=== PATIENT | male | born 1975 | race Caucasian/White ===

== ENCOUNTER 2016-10-05 04:00 | Inpatient (IN) | payer MEDICAID ==
[~2016-10-05] VITALS: Ht 177.8 cm; Wt 78.9 kg
[~2016-10-05 04:00] MED LIST: PRILOSEC20 M1 PO
--- NOTE | 2016-10-05 04:12 | NUR ---
PT TAKEN TO BED 5
[2016-10-05 04:18] VITALS: BP 125/85
--- NOTE | 2016-10-05 04:18 | NUR ---
40 Y/O M W/C/O R UPPER ABD PAIN X TODAY. DENIES ANY VOMITITNG BUT STATES TO FEEL NAUSEATED. MED ACID REFLEX FOR WHICH TAKES OMEPRAZOLE 20MG.
--- NOTE | 2016-10-05 04:24 | NUR ---
Dr. Bal evaluating patient at bedside.
[2016-10-05 04:35] VITALS: BP 125/76
[2016-10-05] MEDS ORDERED: KETOROLAC 60 MG/2 ML VIAL IM ONE ×2 (04:36→05:05)
--- NOTE | 2016-10-05 04:36 | NUR ---
PER DR WRITTEN ORDERS TO GIVE KETOROLAC 60MG/2LM IM FOR PAIN.MEDICATION GIVEN, PT TOLERATED WELL.
--- NOTE | 2016-10-05 05:06 | NUR ---
Ultrasound at bedside.
[2016-10-05] MEDS ORDERED: ONDANSETRON 4 MG/2 ML VIAL IVP PRN (06:05)
[2016-10-05] MEDS ORDERED: LORazepam 2 MG/ML VIAL IVP PRN (06:05)
[2016-10-05] MEDS ORDERED: MORPHINE SULFATE 4 MG/ML SYR IVP PRN (06:05)
--- NOTE | 2016-10-05 06:11 | NUR ---
Patient will be admitted to care of DR HADLEY. Admited to MED SURG. Will go to room 122B. Belongings list completed. Report to KULDEEP COTTER.
--- NOTE | 2016-10-05 06:20 | NUR ---
PT TRASFERED TO MED SURG, ROOM 122 B VIA WHEEL CHAIR. ACCOMPANIED BY EMT AND FAMILY. NO S/S OF DISTRESS NOTED ON TRASFER.
--- NOTE | 2016-10-05 06:30 | NUR ---
PATIENT ADMITTED TO UNIT FROM ED, ARRIVED VIA WHEELCHAIR, PATIENT ABLE TO AMBULATE TO BED, STEADY GAIT. PATIENT IS AAOX4, ON ROOM AIR, NO SOB OR SIGN OF DISTRESS AT THIS TIME, VITAL SIGNS STABLE, TEMP 97.4 BP 115/72 HR 56 O2 100%. ORIENTED PATIENT TO ROOM AND CALL LIGHT, SAFETY MEASURES CHECKED WILL ENDORSE TO MORNING NURSE FOR CONTINUITY OF CARE.
--- NOTE | 2016-10-05 07:35 | NUR ---
ENDORSED PATIENT TO DAY RN AT BEDSIDE, PATIENT IN STABLE CONDITION
--- NOTE | 2016-10-05 07:36 | NUR ---
PT AWAKE AND ALERT, NO SIGNS OF ACUTE DISTRESS, BREATHING EVEN AND UNLABORED BILATERALLY ON ROOM AIR, BOWEL SOUNDS ACTIVE IN ALL 4 QUADRANTS, AMBULATORY WITH BRP, SKIN INTACT, IV PATENT WITHOUT REDNESS, NO COMPLAINT OF PAIN, CALL LIGHT WITHIN REACH, BED IN LOW POSITION WITH BILATERAL HALF SIDE RAILS UP, ORIENTED TO ROOM AND UNIT, PATIENT VERBALIZED UNDERSTANDING.
[2016-10-05 08:00] VITALS: BP 102/60
[2016-10-05] MEDS ORDERED: OMEPRAZOLE 20 MG PO SCH (09:00)
[2016-10-05] MEDS: PANTOPRAZOLE 40 MG TABEC PO SCH (09:00)
[2016-10-05] MEDS: DEXT 5% /NACL 0.9% 1,000 ML IV SCH ×2 (09:52→16:05)
[2016-10-05] MEDS ORDERED: KCL 20 MEQ/WATER INJ PREMIX 100 ML IV SCH (10:00)
[2016-10-05 16:00] VITALS: BP 108/63
--- NOTE | 2016-10-05 19:24 | NUR ---
PT AWAKE AND ALERT, NO SIGNS OF ACUTE DISTRESS. BED IN LOW POSITION WITH BILATERAL HALF SIDE RAILS UP, CALL LIGHT WITHIN REACH. GAVE REPORT TO SENIOR ENGINEERING TECHNICIAN RN FOR CONTINUITY OF CARE.
--- NOTE | 2016-10-05 19:25 | NUR ---
RECEIVED REPORT, ASSUMED CARE. PT AAOX4. RESPIRATION EVEN AND UNLABORED. DENIES PAIN OR DISCOMFORT AT THIS TIME. IV ACCESS TO LT AC #22, NO S/S OF INFILTRATION. INFUSING D5 NS AT 100ML/HR. CALL LIGHT WITHIN EASY REACH. WILL CONTINUE TO MONITOR. PT ON NPO POST MN ORDERED. DISCUSSED PLAN OF CARE TO THE PT, HE VERBALIZED UNDERSTANDING.
--- NOTE | 2016-10-05 22:30 | NUR ---
ROUNDS MADE, PT STILL AWAKE AT THIS TIME. REGULAR BREATHING PATTERN,NO S/S OF RESP DISTRESS. PT DENIES ANY PAIN OR DISCOMFORY AT THIS TIME. ALL NEEDS ANTICIPATED.ALL NEEDS ANTICIPATED. CALL LIGHT KEPT WITHIN EASY REACH. WILL CONTINUE TO MONITOR.
[2016-10-06] VITALS (9 sets, daily range): BP systolic 95–116; BP diastolic 56–65
[2016-10-06] MEDS: DEXT 5% /NACL 0.9% 1,000 ML IV SCH ×3 (01:02→22:05)
--- NOTE | 2016-10-06 07:30 | NUR ---
PT AWAKE, VERBALLY RESPONSIVE. NO C/O PAIN AT THIS TIME. ENDORSED TO NEXT SHIFT FOR CONTINUITY OF CARE. PT IN STABLE CONDITION.
--- NOTE | 2016-10-06 07:31 | NUR ---
RECEIVED REPORT FROM THE LASER TECHNICIAN NURSE AT BEDSIDE FOR CONTINUITY OF CARE. PT IS AWAKE AND ORIENTED. INTRODUCED MYSELF AND UPDATED THE BOARD. PER LASER TECHNICIAN NURSE, PT IS TO HAVE CHOLECYSTECTOMY TODAY. ALL READY TO GO. TICKET TO RIDE AND CONSENT IN CHART. PT'S BEEN NPO SINCE MIDNIGHT. NOTED IV ON L AC 22G D5NS RUNNING AT 100ML. PT DENIES ANY PAIN AT THIS TIME. V/S WITHIN NORMAL RANGE. SKIN INTACT. WILL CONTINUE TO MONITOR PT.
[2016-10-06] MEDS: PANTOPRAZOLE 40 MG TABEC PO SCH (09:00)
--- NOTE | 2016-10-06 09:15 | NUR ---
2 OR TOOK PT FOR PROCEDURE.
[2016-10-06] MEDS ORDERED: ONDANSETRON 4 MG/2 ML VIAL ONE (09:20)
[2016-10-06] MEDS ORDERED: PROPOFOL 200 MG/20 ML VIAL IV ONE (09:20)
[2016-10-06] MEDS ORDERED: DEXAMETHASONE 4 MG/ML VIAL ONE (09:20)
[2016-10-06] MEDS ORDERED: ROCURONIUM 50 MG/5 ML VIAL IV ONE (09:20)
[2016-10-06] MEDS ORDERED: SUCCINYLCHOLINE CHLORIDE 200 MG/10 ML VIAL IVP ONE (09:20)
[2016-10-06] MEDS ORDERED: KETOROLAC 30 MG/ML VIAL ONE (09:20)
[2016-10-06] MEDS ORDERED: SEVOFLURANE 250 ML BTL INH ONE (09:20)
--- NOTE | 2016-10-06 09:20 | NUR ---
PATIENT HAS BEEN SCREENED AND CATEGORIZED MODERATE NUTRITION RISK. PATIENT WILL BE SEEN WITHIN 3-5 DAYS OF ADMISSION. 10/07/16-10/09/[address]
[2016-10-06] MEDS ORDERED: BUPIVACAINE-MPF/EPI 0.25% 30 ML VIAL INJ ONE (09:26)
[2016-10-06] MEDS ORDERED: ceFAZolin 1,000 MG VIAL ONE (09:27)
[2016-10-06] MEDS ORDERED: MIDAZOLAM 2 MG/2 ML VIAL ONE (09:35)
[2016-10-06] MEDS ORDERED: fentaNYL 0.05 MG/ML VIAL ONE (09:36)
[2016-10-06] MEDS ORDERED: MEPERIDINE 50 MG/ML SYR ONE (09:36)
[2016-10-06] MEDS ORDERED: diphenhydrAMINE 50 MG/ML VIAL IVP PRN (09:55)
[2016-10-06] MEDS ORDERED: ONDANSETRON 4 MG/2 ML VIAL IVP PRN (09:55)
[2016-10-06] MEDS ORDERED: LACTATED RINGERS 1,000 ML IV SCH (09:55)
[2016-10-06] MEDS ORDERED: MEPERIDINE 25 MG/ML SYR IVP PRN (09:55)
[2016-10-06] MEDS: HYDROmorphone 1 MG/ML AMP IVP PRN ×2 (10:52→11:08)
[2016-10-06] MEDS: HYDROmorphone PFS 2 MG/ML SYR ONE ×3 (10:53→11:32)
--- NOTE | 2016-10-06 12:00 | NUR ---
PT RETURNED BACK ONTO THE FLOOR W/ OR NURSE. PT IS AWAKE BUT DROWSY. PT V/S WITHIN NORMAL RANGE. PT HAS 4 BAND-AIDS COVERING SURGICAL SITE. WILL RESUME POST OP PROTOCOL W/ VS.
--- NOTE | 2016-10-06 13:41 | NUR ---
PT IS RESTING COMFORTABLY. SIPPING ON HIS CLEAR LIQ DIET LUNCH TRAY. AT BEDSIDE. NO COMPLAINTS OF PAIN. WILL CONTINUE TO MONITOR PT.
--- NOTE | 2016-10-06 16:30 | NUR ---
SPOKE TO DR. HADLEY REGARDING DR TINEO'S DC ORDER. DR. HADLEY ORDERED REGULAR DIET FOR TONIGHT AND DISCHARGE TOMORROW IF PT TOLERATES REGULAR DIET AND AMBULATES WELL. WILL CARRY OUT ORDER AND INFORM PT.
[2016-10-06] MEDS: MORPHINE SULFATE 2 MG/ML SYR IVP PRN ×2 (17:24→21:14)
--- NOTE | 2016-10-06 18:39 | NUR ---
PT ATE HIS REG DIET DINNER. PT TOLERATED WELL. PT HAS NOT YET AMBULATED TO THE BATHROOM. NO SIGNS OF DISTRESS. NO COMPLAINTS OF PAIN.
--- NOTE | 2016-10-06 19:18 | NUR ---
ENDORSED PT TO HYDROPULPER NURSE. PT IN STABLE CONDITION.
--- NOTE | 2016-10-06 19:24 | NUR ---
RECEIVED REPORT, ASSUMED CARE. PT AAOX4. RESPIRATION EVEN AND UNLABORED. PT SEEN AMBULATING IN THE HALLWAY WITH NO C/O PAIN AT THIS TIME. IV ACCESS TO LT AC #22, NO S/S OF INFILTRATION. INFUSING D5 1/2 NS AT 100ML/HR. CALL LIGHT WITHIN EASY REACH. WILL CONTINUE TO MONITOR.
--- NOTE | 2016-10-06 22:40 | NUR ---
PT SLEEPING COMFORTABLY IN BED. NO ACUTE S/S OF RESPIRATORY DISTRESS. NO FACIAL GRIMACING OR MOANING INDICATING PAIN. WILL CONTINUE TO MONITOR.
[2016-10-07] VITALS: BP 90/53
--- NOTE | 2016-10-07 00:29 | NUR ---
ROUNDS MADE, PT SLEEPING, EASILY AROUSABLE. NO FACIAL GRIMACING OR MOANING INDICATING PAIN. RESP REGULAR AND UNLABORED. WILL CONTINUE TO MONITOR.
[2016-10-07] MEDS: DEXT 5% /NACL 0.9% 1,000 ML IV SCH (03:06)
--- NOTE | 2016-10-07 07:26 | NUR ---
PT AWAKE AND VERBALLY RESPONSIVE. NO C/O PAIN, NO S/S OF RESPIRATORY DISTRESS AT THIS TIME. ENDORSED TO NEXT SHIFT FOR CONTINUITY OF CARE.
--- NOTE | 2016-10-07 07:26 | NUR ---
RECEIVED REPORT FROM NIGHT NURSE. PT IS AAOX4 SWEDISH SPEAKING, ON ROOM AIR, IV TO LEFT AC 22G INFUSING WELL, S/P LAP LELIA WITH 4 ABD BAND AIDS DRY AND INTACT. INITIAL ASSESSMENT COMPLETED, REVIEWED PLAN OF CARE WITH PT, PT VERBALIZED UNDERSTANDING. ALL SAFETY PRECAUTIONS MET, ALL NEEDS MET. CALL LIGHT WITHIN REACH. WILL CONTINUE TO MONITOR.
[2016-10-07 08:00] VITALS: BP 94/57
[2016-10-07] MEDS: MORPHINE SULFATE 2 MG/ML SYR IVP PRN (09:01)
[2016-10-07] MEDS: PANTOPRAZOLE 40 MG TABEC PO SCH (09:01)
--- NOTE | 2016-10-07 09:05 | NUR ---
DUE MEDICATIONS GIVEN. PT TOLERATED WELL. PT CURRENTLY EATING BREAKFAST, TOLERATING FOOD WELL. ALL NEEDS MET. CALL LIGHT WITHIN REACH. WILL CONTINUE TO MONITOR.
--- NOTE | 2016-10-07 09:56 | NUR ---
PT CURRENTLY WALKING AROUND UNIT, NO S/S OF DISTRESS NOTED . WILL CONTINUE TO MONITOR.
--- NOTE | 2016-10-07 10:38 | NUR ---
10/07/16 RD INITIAL ASSESSMENT COMPLETED PLEASE REFER TO NUTRITION ASSESSMENT UNDER CARE ACTIVITY FOR ESTIMATED NUTRITIONAL NEEDS. 1. RECOMMEND LOW FAT/LOW CHOLESTEROL DIET 2. RD TO FOLLOW-UP 3-5 DAYS; MODERATE RISK [facility] [address]
[2016-10-07] MEDS ORDERED: NORCO 325 MG-51 TAB PO (11:02)
--- NOTE | 2016-10-07 13:20 | NUR ---
PT SIGNED ALL DISCHARGE PAPER WORK, DISCHARGE EDUCATION GIVEN PT VERBALIZED UNDERSTANDING, PRESCRIPTION GIVEN, DISCHARGE PACKET GIVEN, IV REMOVED TIP INTACT, ABD PICTURE TAKEN. ARM BRM BANDS REMOVE, AWAITING FOR TO PICK PT UP.
--- NOTE | 2016-10-07 14:04 | NUR ---
PT WAS WALKED TO FRONT LOBBY IN STABLE CONDITION.
== END 2016-10-07 14:04 | disposition home or self-care (01) | DRG 263 ==
LOC: MED 04:00 → MTU 06:14
PROVIDERS: ADMIT Preventive Medicine Preventive Medicine/Occupational Environmental Medicine; ATTEND Preventive Medicine Preventive Medicine/Occupational Environmental Medicine
PROC: 0FT44ZZ Resection of Gallbladder, Percutaneous Endoscopic Approach (ICD-10-PCS; principal; 2016-10-06 10:25)
DX: K80.00 Calculus of gallbladder with acute cholecystitis without obstruction (principal); E43 Unspecified severe protein-calorie malnutrition; E83.52 Hypercalcemia; E87.5 Hyperkalemia; K21.9 Gastro-esophageal reflux disease without esophagitis; R73.9 Hyperglycemia, unspecified; D72.819 Decreased white blood cell count, unspecified; E78.5 Hyperlipidemia, unspecified; Z79.899 Other long term (current) drug therapy; Z68.25 Body mass index [BMI] 25.0-25.9, adult; Z82.49 Family history of ischemic heart disease and other diseases of the circulatory system

== ENCOUNTER 2019-02-01 13:29 | Emergency (ER) | payer MEDICAID ==
[~2019-02-01] VITALS: Ht 182.9 cm; Wt 87.1 kg
[~2019-02-01 13:29] MED LIST changes: +HYDR-5122 PO; +OMEP20EC4 PO; -PRILOSEC20 M1 PO
[2019-02-01 13:38] VITALS: BP 113/65
--- NOTE | 2019-02-01 13:39 | NUR ---
TRIAGE COMPLETE. DR MARIE GIVEN EKG, OKAY TO WAIT IN LOBBY FOR BED.
--- NOTE | 2019-02-01 14:01 | NUR ---
PT TAKEN TO BED 11.
[2019-02-01] MEDS ORDERED: ASPIRIN 81 MG TAB.CHEW PO ONE (14:15)
--- NOTE | 2019-02-01 14:21 | NUR ---
COVERING PRIMARY RN FOR LUNCH RELIEF. PT TO ED WITH C/O CP X 2 DAYS. DENIES SOB. DENIES RECENT INJURY/TRAUMA. NO OBVIOUS DISTRESS NOTED. EKG PERFORMED IN [facility]. REGULAR RATE AND RHYTHM ON CARDAIC MONITOR. PT PLACED INTO BED FOR MD RAMIREZ. VSS.
--- NOTE | 2019-02-01 15:09 | NUR ---
PT RESTING IN BED, DENIES CP AT THIS TIME
[2019-02-01 16:24] LABS: BASOPHILS % (AUTO) 0.3 % (0.0-2.0); EOSINOPHILS # (AUTO) 0.1 K/uL (0-0.4); HEMATOCRIT 42.5 % (36-52); LYMPHOCYTES # (AUTO) 1.4 K/uL (2.0-11.5); LYMPHOCYTES % (AUTO) 26.8 % (20.5-51.1); MEAN CORPUSCULAR HEMOGLOBIN 29 pg (27-31); MEAN CORPUSCULAR HGB CONC 33 g/dL (33-37); MEAN CORPUSCULAR VOLUME 88.6 fL (80-94); MONOCYTES # (AUTO) 0.4 K/uL (0.8-1.0); MONOCYTES % (AUTO) 8.3 % (1.7-9.3); NEUTROPHILS # (AUTO) 3.3 K/uL (1.8-7.7); NEUTROPHILS % (AUTO) 62.6 % (42.2-75.2); PLATELET COUNT (AUTO) 207 K/uL (140-450); RED BLOOD CELL COUNT(AUTO) 4.79 MIL/uL (4.20-6.10); RED CELL DISTRIBUTION WIDTH 14.4 % (11.6-13.7); WHITE BLOOD COUNT (AUTO) 5.3 K/uL (4.8-10.8)
[2019-02-01] MEDS ORDERED: ALBUTEROL 0.083% 2.5 MG/3 ML NEBU INH ONE (16:35)
[2019-02-01 16:43] LABS: ANION GAP 10.4 (8-16); CARBON DIOXIDE 29.6 mmol/L (21-32); CREATININE 0.9 mg/dL (0.7-1.3)
--- NOTE | 2019-02-01 16:58 | NUR ---
[facility] THERAPY AND RESPIRATORY GIVEN ORDERED ENCOURAGED FOR INTERMITTENT DEEP BREATH AND COUGH DURING THERAPY
--- NOTE | 2019-02-01 17:15 | NUR ---
PT WATCHING PHONE IN BED. DENIES PAIN
--- NOTE | 2019-02-01 18:13 | NUR ---
PT RESTING IN BED, DENIES PAIN AT THIS TIME, NO NEW NEEDS.
--- NOTE | 2019-02-01 19:15 | NUR ---
RECEIVED REPORT FROM RACHID, TRANSFER OF CARE AT THIS TIME.
[2019-02-01 20:22] VITALS: BP 121/77
--- NOTE | 2019-02-01 20:22 | NUR ---
Patient discharged with v/s stable. Written and verbal after care instructions given and explained. Patient alert, oriented and verbalized understanding of instructions. Ambulatory with steady gait. All questions addressed prior to discharge. ID band removed. Patient advised to follow up with PMD. Rx of AZITHROMYCIN AND ALBUTEROL WAS given. Patient educated on indication of medication including possible reaction and side effects. Opportunity to ask questions provided and answered.
== END 2019-02-01 20:22 | disposition home or self-care (01) ==
LOC: MED 13:29
DX: J40 Bronchitis, not specified as acute or chronic (principal); Z79.899 Other long term (current) drug therapy
CPT/HCPCS: 36415; 71045; 80048; 84484; 85025; 94640; 99284; J7613; Q0092

== ENCOUNTER 2021-10-27 22:37 | Emergency (ER) | payer MEDICAID ==
[~2021-10-27] VITALS: Ht 170.2 cm; Wt 84.4 kg
[2021-10-27 22:50] VITALS: BP 112/63
--- NOTE | 2021-10-28 00:50 | NUR ---
RECEIVED IN BED 12 WITH C/O PT HEADACHE WITH GENERALIZED BODY ACHES X 8 DAYS. AFEBRILE. PMH : DENIES NKDA
--- NOTE | 2021-10-28 01:37 | NUR ---
dr alcala at bedside for exam
[2021-10-28] MEDS ORDERED: KETOROLAC 30 MG/ML VIAL IM ONE (01:40)
[2021-10-28 01:53] LABS: BASOPHILS % (AUTO) 0.4 % (0.0-2.0); EOSINOPHILS % (AUTO) 0.2 % (0.0-4.0); HEMATOCRIT 40.6 % (36-52); HEMOGLOBIN 13.5 g/dL (12.0-18.0); LYMPHOCYTES # (AUTO) 0.8 K/uL (2.0-11.5); LYMPHOCYTES % (AUTO) 22.5 % (20.5-51.1); MEAN CORPUSCULAR HEMOGLOBIN 28 pg (27-31); MEAN CORPUSCULAR HGB CONC 33 g/dL (33-37); MEAN CORPUSCULAR VOLUME 84.6 fL (80-94); MONOCYTES # (AUTO) 0.4 K/uL (0.8-1.0); MONOCYTES % (AUTO) 11.6 % (1.7-9.3); NEUTROPHILS # (AUTO) 2.3 K/uL (1.8-7.7); NEUTROPHILS % (AUTO) 65.3 % (42.2-75.2); PLATELET COUNT (AUTO) 168 K/uL (140-450); RED CELL DISTRIBUTION WIDTH 13.7 % (11.6-13.7); WHITE BLOOD COUNT (AUTO) 3.6 K/uL (4.8-10.8)
[2021-10-28 02:05] LABS: ALBUMIN 3.6 g/dL (3.4-5.0); ANION GAP 9.5 (8-16); CARBON DIOXIDE 28.5 mmol/L (21-32); CREATININE 1.1 mg/dL (0.6-1.3); TOTAL BILIRUBIN 0.4 mg/dL (0.0-1.0)
--- NOTE | 2021-10-28 03:00 | NUR ---
INF A&B SWAB OBTAINED AND SENT TO LAB
[2021-10-28] MEDS ORDERED: NAPR-54 PO (03:37)
[2021-10-28 03:40] VITALS: BP 112/63
== END 2021-10-28 03:40 | disposition home or self-care (01) ==
LOC: MED 22:37
DX: B34.9 Viral infection, unspecified (principal); R51.9 Headache, unspecified; Z79.1 Long term (current) use of non-steroidal anti-inflammatories (NSAID); Z79.899 Other long term (current) drug therapy; Z79.891 Long term (current) use of opiate analgesic
CPT/HCPCS: 36415; 80053; 85025; 87804; 96372; 99283; J1885